=== PATIENT | male | born 1960 | race Caucasian/White ===

== ENCOUNTER 2016-03-25 17:36 | Emergency (ER) | payer BC ==
[2016-03-25 19:00] VITALS: BP 162/97
--- NOTE | 2016-03-25 19:12 | UC ---
Respiratory Complaint HPI - HPI Summary HPI Summary: The patient comes in today for: 1. Sinus pressure: Onset: 4 days ago. Palliative/Provocative: Sitting up helps with sleep. Mucinex has helped. Quality: Pressure Region: Frontal sinuses Severity: 4/10 Time: Constant. Associated symptoms: Sore throat: Present. Rhinitis: Cloudy, yellow. Cough: Present, and productive of yellow sputum Vomiting: None. Fevers: None. Shortness of breath: None. Chest pain: None. Wheezing: None. Upper tooth pain: None. * - History of Current Complaint Chief Complaint: UCGeneralIllness Stated Complaint: SORE THROAT, SINUSES Time Seen by Provider: 03/25/16 19:03 Hx Obtained From: Patient - Allergies/Home Medications Allergies/Adverse Reactions: Allergies Allergy/AdvReac Type Severity Reaction Status Date / Time No Known Allergies Allergy Verified 03/08/13 11:21 Home Medications: Home Medications Atorvastatin* [Lipitor 10 MG*] 10 mg PO 1700 03/25/16 [History Confirmed ] PMH/Surg Hx/FS Hx/Imm Hx Previously Healthy: No - Basal cell carcinoma. Endocrine History Of: Reports: Dyslipidemia Denies: Diabetes, Thyroid Disease, Hyperthyroidism, Hypothyroidism Cardiovascular History Of: Reports: Hypertension Denies: Cardiac Disorders, Pacemaker/ICD, Myocardial Infarction, Congestive Heart Failure, Atrial Fibrillation, Deep Vein Thrombosis, Bleeding Disorders Respiratory History Of: Denies: COPD, Asthma, Bronchitis, Pneumonia, Pulmonary Embolism GI/ History Of: Denies: Gastroesophageal Reflux, Ulcer, Gastrointestinal Bleed, Gall Bladder Disease, Kidney Stones, Diverticulitis, Renal Disease, Urosepsis Neurological History Of: Denies: TIA, CVA, Dementia, Seizures, Migraine Psychological History Of: Denies: Anxiety, Depression, Bipolar Disorder, Schizophrenia, Post Traumatic Stress Disorder Cancer History Of: Denies: Lung Cancer, Colorectal Cancer, Breast Cancer, Prostate Cancer, Cervical Cancer Other History Of: Negative For: HIV, Hepatitis B, Hepatitis C, Anticoagulant Therapy - Surgical History Surgical History: Yes Surgery Procedure, Year, and Place: left shoulder - Family History Known Family History: Negative: Cardiac Disease, Hypertension - Social History Occupation: Employed Full-time Alcohol Use: None Substance Use Type: None Smoking Status (MU): Never Smoked Tobacco Review of Systems Constitutional: Negative Skin: Negative Eyes: Negative ENT: Sore Throat, Nasal Discharge Respiratory: Negative Cardiovascular: Negative Gastrointestinal: Negative Genitourinary: Negative All Other Systems Reviewed And Are Negative: Yes Physical Exam Triage Information Reviewed: Yes Appearance: Well-Appearing, No Pain Distress, Well-Nourished Vital Signs: Initial Vital Signs Temp 98.2 F 03/25/16 18:52 Pulse 76 03/25/16 18:52 Resp 16 03/25/16 18:52 BP 162/97 03/25/16 18:52 Pulse Ox 98 03/25/16 18:52 Vital Signs Reviewed: Yes Eyes: Positive: Conjunctiva Clear. Negative: Discharge ENT: Positive: Hearing grossly normal, Other: - Frontal sinus pressure: present with palpation.. Negative: Pharyngeal erythema, Nasal congestion, Nasal drainage, TM bulging, TM dull, TM red, Tonsillar swelling, Tonsillar exudate Dental: Negative: Gross Decay/Caries @, Dental Fracture @ Neck: Positive: Supple, Nontender, No Lymphadenopathy. Negative: Nuchal Rigidity Respiratory: Positive: Chest non-tender, Lungs clear, No respiratory distress, No accessory muscle use. Negative: Accessory muscle use, Crackles, Wheezing Cardiovascular: Positive: RRR, No Murmur Abdomen Description: Positive: Nontender, No Organomegaly, Soft. Negative: Distended, Guarding, McBurney's Point Tenderness, Peritoneal Signs Musculoskeletal: Positive: Strength Intact, ROM Intact, No Edema Neurological: Positive: Alert, Muscle Tone Normal Psychological: Positive: Age Appropriate Behavior, Consolable Skin: Negative: rashes, breakdown UC Diagnostic Evaluation - Laboratory O2 Sat by Pulse Oximetry: 98 Respiratory Course/Dx - Differential Dx/Diagnosis Differential Diagnosis/HQI/PQRI: Asthma, Bronchitis, Laryngitis, Sinusitis Provider Diagnoses: Sinusitis. Bronchitis Discharge - Discharge Plan Condition: Stable Disposition: HOME Patient Education Materials: Sinusitis (ED), Acute Bronchitis (ED) Additional Instructions: Please see your primary care provider in about a week to see how well you are doing. If you get worse, please be seen sooner by your primary care provider or us. IF you don't have a primary care provider, please reference the list of local providers included with your discharge papers to get one.
== END 2016-03-25 19:33 | disposition home or self-care (01) ==
LOC: UCCORT 17:36
DX: J32.9 Chronic sinusitis, unspecified (principal); J40 Bronchitis, not specified as acute or chronic
CPT/HCPCS: 99212; G0463

== ENCOUNTER 2016-12-15 09:59 | Emergency (ER) | payer BC ==
[2016-12-15 11:14] VITALS: BP 137/86
--- NOTE | 2016-12-15 12:02 | UC ---
Throat Pain/Nasal Pritesh HPI - HPI Summary HPI Summary: 56 yo male with 2 week hx of wasxing and waning sinus pressure and pain occasional right otalgia no f/c no n/v mild sore throat nasal congestion and post nasal drip - History of Current Complaint Chief Complaint: UCRespiratory Stated Complaint: SINUS PRESSURE Time Seen by Provider: 12/15/16 11:46 Hx Obtained From: Patient Onset/Duration: Gradual Onset, Lasting Weeks Severity: Moderate Pain Intensity: 2 Pain Scale Used: 0-10 Numeric Cough: None Associated Signs & Symptoms: Positive: Sinus Discomfort, Nasal Discharge - Epiglottits Risk Factors Epiglottis Risk Factors: Negative - Allergies/Home Medications Allergies/Adverse Reactions: Allergies Allergy/AdvReac Type Severity Reaction Status Date / Time No Known Allergies Allergy Verified 03/08/13 11:21 Home Medications: Home Medications Acetaminophen TAB* [Tylenol TAB*] 650 mg PO Q4H PRN 12/15/16 [History Confirmed 12/15/16] Aspirin EC Low Dose* [Ecotrin EC Low Dose 81 MG*] 81 mg PO DAILY 12/15/16 [ History Confirmed 12/15/16] Multivitamins/Minerals TAB* [Thera M Plus TAB*] 1 tab PO DAILY 12/15/16 [ History Confirmed 12/15/16] PMH/Surg Hx/FS Hx/Imm Hx Previously Healthy: Yes Endocrine History: Dyslipidemia Cardiovascular History: Hypertension Other History Of: Negative For: HIV, Hepatitis B, Hepatitis C, Anticoagulant Therapy - Surgical History Surgical History: Yes Surgery Procedure, Year, and Place: Left Shoulder Labrum and Rotator Cuff, 2006 , [place] - Family History Known Family History: Positive: Other - mom CVA and colon CA Negative: Cardiac Disease, Hypertension - Social History Alcohol Use: Rare Substance Use Type: None Smoking Status (MU): Never Smoked Tobacco - Immunization History Most Recent Influenza Vaccination: Not the 2017/2017 Season Review of Systems Constitutional: Negative Skin: Negative Eyes: Negative ENT: Ear Ache, Nasal Discharge, Sinus Congestion, Sinus Pain/Tenderness Respiratory: Negative Cardiovascular: Negative Gastrointestinal: Negative Genitourinary: Negative Motor: Negative Neurovascular: Negative Musculoskeletal: Negative Neurological: Negative Psychological: Negative Is Patient Immunocompromised?: No All Other Systems Reviewed And Are Negative: Yes Physical Exam Triage Information Reviewed: Yes Appearance: Well-Appearing, No Pain Distress, Well-Nourished Vital Signs: Initial Vital Signs Temp 98.2 F 12/15/16 11:05 Pulse 68 12/15/16 11:05 Resp 16 12/15/16 11:05 BP 137/86 12/15/16 11:05 Pulse Ox 100 12/15/16 11:05 Eyes: Positive: Conjunctiva Clear ENT: Positive: Hearing grossly normal, Nasal congestion, Nasal drainage, TMs normal, Other: - R>L max sinus tenderness. Negative: Tonsillar exudate, Trismus , Muffled/hoarse voice Neck: Positive: Supple, Nontender Respiratory: Positive: Lungs clear, Normal breath sounds, No respiratory distress, No accessory muscle use Cardiovascular: Positive: RRR, No Murmur Musculoskeletal: Positive: ROM Intact, No Edema Neurological Exam: Normal Neurological: Positive: Alert Psychological Exam: Normal Skin Exam: Normal Throat Pain/Nasal Course/Dx - Differential Dx/Diagnosis Provider Diagnoses: acute sinusitis Discharge - Discharge Plan Condition: Stable Disposition: HOME Prescriptions: Amoxicillin PO (*) [Amoxicillin 875 MG (*)] 875 mg PO BID #20 tab Patient Education Materials: Sinusitis (ED), Warm Compress or Soak (ED) Referrals: Balwinder VALDEZ,Navneet Miller [Primary Care Provider] - 5 Days (if not better) Additional Instructions: saline nasal spray twice daily
== END 2016-12-15 12:10 | disposition home or self-care (01) ==
LOC: UCCORT 09:59
DX: J01.90 Acute sinusitis, unspecified (principal); E78.5 Hyperlipidemia, unspecified; I10 Essential (primary) hypertension
CPT/HCPCS: 99212; G0463

== ENCOUNTER 2018-09-14 21:29 | Emergency (ER) | payer BC ==
[2018-09-14 23:02] VITALS: BP 139/87
--- NOTE | 2018-09-14 23:11 | UC ---
General HPI - HPI Summary HPI Summary: on 09/09, pt was holding a football shield when he fell back landing on his L elbow and tore his tricep muscle. the area bruised and swelled but was improving. today, he was lifting and pushing overhead and got sudden sever pain over his lower L tricep with more swelling. the swelling goes into his lower arm as well. he notes some of the bruising in his arm is turning yellow. - History of Current Complaint Chief Complaint: UCUpperExtremity Stated Complaint: PAIN/SWELING LEFT TRICEP Time Seen by Provider: 09/14/18 23:04 Hx Obtained From: Patient Pain Intensity: 7 Associated Signs & Symptoms: Positive: Edema - Allergy/Home Medications Allergies/Adverse Reactions: Allergies Allergy/AdvReac Type Severity Reaction Status Date / Time No Known Allergies Allergy Verified 09/14/18 22:53 Home Medications: Home Medications Ibuprofen TAB* [Advil TAB*] 600 mg PO Q6H PRN 09/14/18 [History Confirmed ] Ramipril CAP* [Altace CAP*] 10 mg PO DAILY 09/14/18 [History Confirmed 09/14/18] PMH/Surg Hx/FS Hx/Imm Hx Endocrine History: Dyslipidemia Cardiovascular History: Hypertension Other History Of: Negative For: HIV, Hepatitis B, Hepatitis C, Anticoagulant Therapy - Surgical History Surgical History: Yes Surgery Procedure, Year, and Place: Left Shoulder Labrum and Rotator Cuff, 2006 , [place] - Family History Known Family History: Positive: Other - mom CVA and colon CA Negative: Cardiac Disease, Hypertension - Social History Alcohol Use: Occasionally Substance Use Type: None Smoking Status (MU): Never Smoked Tobacco - Immunization History Most Recent Influenza Vaccination: Not the Season Review of Systems All Other Systems Reviewed And Are Negative: No Constitutional: Negative: Fever Musculoskeletal: Positive: Edema - L ARM. Negative: Decreased ROM Neurological: Negative: Paresthesia, Numbness Physical Exam Triage Information Reviewed: Yes Appearance: Well-Appearing Vital Signs: Initial Vital Signs Temp 99 F 09/14/18 22:55 Pulse 72 09/14/18 22:55 Resp 20 09/14/18 22:55 BP 139/87 09/14/18 22:55 Pulse Ox 99 09/14/18 22:55 Vital Signs Reviewed: Yes Neck: Positive: Supple Respiratory: Positive: No respiratory distress Cardiovascular: Positive: RRR Musculoskeletal: Positive: Other: - LUE: moderate swelling from the lower 2/3 of humerus into the forearm and hand with yellowing ecchymosis. The lower half of that tricep is indurated and tender. The arm has full rom but extension at the elbow causes tricep mm pain. The hand has full s/v/m function. Neurological: Positive: Alert Psychological: Positive: Age Appropriate Behavior Skin Exam: Normal Course/Dx - Differential Dx - Multi-Symptom Differential Diagnoses: Other - exam c/w tricep mm injury. i think the swelling is injury related and not from a dvt. i will sling to limit tricep mm use and refer orhto for f/u tomorrow. - Diagnoses Provider Diagnosis: Strain of triceps muscle Discharge - Sign-Out/Discharge Documenting (check all that apply): Patient Departure All imaging exams completed and their final reports reviewed: No Studies - Discharge Plan Condition: Stable Disposition: HOME Patient Education Materials: Ice Pack Application (ED), Tendon Rupture (ED) Referrals: Gil Rodriguez MD [Medical Doctor] - 1 Day Additional Instructions: SLING DURING DAY AND REMOVE FOR BEDTIME. - Billing Disposition and Condition Condition: STABLE Disposition: Home - Attestation Statements Provider Attestation: Per institutional requirements, I have reviewed the chart.
== END 2018-09-14 23:33 | disposition home or self-care (01) ==
LOC: UCCORT 21:29
DX: S46.312A Strain of muscle, fascia and tendon of triceps, left arm, initial encounter (principal); X50.0XXA Overexertion from strenuous movement or load, initial encounter; Y93.89 Activity, other specified; Y92.9 Unspecified place or not applicable
CPT/HCPCS: 99212; G0463

== ENCOUNTER → 2018-10-14 05:34 | Day surgery (SDC) | payer BC ==
[~2018-10-14 05:34] MED LIST: Acetaminophen TAB* 325 MG PO PRN; Buffered Lidocaine 1% SYRIN* 1 ML/SYRINGE INTRADERM ONE; Bupivacaine 0.5%* 50 ML MDV VIAL ONE; Dexamethasone IV* 4 MG/ML 1 ML (4 MG) IV SLOW PU ONE; Dexamethasone IV* 4 MG/ML 1 ML (4 MG) ONE; DiMENhydriNATE IV* 50 MG/ML VIAL IV PUSH PRN; DiMENhydriNATE IV* 50 MG/ML VIAL ONE; Famotidine TAB* 20 MG ONE; Famotidine TAB* 20 MG PO ONE; Glycopyrrolate IV* 0.2 MG/ML 1 ML VIAL ONE; HYDROmorphone INJ1* 1 MG/ML SYRINGE ONE; Ketorolac INJ* 30 MG/ML 1 ML VIAL IV PRN; Ketorolac INJ* 30 MG/ML 1 ML VIAL ONE; Lactated Ringers 1000 ML Bag* 1,000 ML IV SCH; Lidocaine 2% PF * 5 ML VIAL ONE; Midazolam* 1 MG/ML 2 ML VIAL (2 MG) ONE; Naloxone* 0.4 MG/ML 1 ML VIAL IV PRN; Neostigmine Methylsulfate* 3 MG/3 ML SYRINGE ONE; Ondansetron INJ* 2 MG/ML VIAL ONE; Propofol* 10 MG/ML 20 ML BTL ONE; Rocuronium* 10 MG/ML VIAL ONE; ceFAZolin 2 GM in NS PREMIX(*) 2 GM/100 ML BAG IVPB ONE; fentaNYL* 50 MCG/ML 2 ML VIAL (100 MCG VIAL) IV PRN; fentaNYL* 50 MCG/ML 2 ML VIAL (100 MCG VIAL) ONE; oxyCODONE/Acetamin 5/325 MG* TAB ONE; oxyCODONE/Acetamin 5/325 MG* TAB PO PRN
[2018-10-14] MEDS: HYDROmorphone INJ1* 1 MG/ML SYRINGE IV PRN ×2 (10:13→10:33)
[2018-10-14 12:50] VITALS: BP 109/72
--- NOTE | 2018-10-14 22:35 | OP ---
DATE OF OPERATION: 10/14/18 - [facility] DATE OF : 62 SURGEON: Abraham Chinchilla MD. TRACTOR TRAILER OPERATOR: LEAH Butler. A physician funeral home assistant was required for the length of the procedure for assistance with patient positioning, retraction, and closure. ANESTHESIOLOGIST: Dr. Yovany Cheng. ANESTHESIA: General anesthesia, local anesthesia with 10 cc of 0.5% Marcaine with epinephrine. PRE-OP DIAGNOSIS: Left triceps tendon tear, distal. POST-OP DIAGNOSIS: Left triceps tendon tear, distal. OPERATIVE PROCEDURE: Open left distal triceps tendon repair. ANTIBIOTICS: 2 g Ancef IV. IV FLUIDS: 1300 cc crystalloid. TOURNIQUET TIME: 75 minutes, left upper arm tourniquet, 250 mmHg. MFEL-PL-LFTO TIME: 71 minutes. SPECIMEN: None. IMPLANTS: FiberWire #2 suture, x2. Mitek Gryphon anchor, double loaded, x1. COMPLICATIONS: None. ESTIMATED BLOOD LOSS: Minimal. 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 His MRI had been performed and I have reviewed it. We discussed the pros and cons of nonoperative and operative management and the patient opted for surgery. His tear by MRI appeared to be a partial tear but involved most, if not all, of the central tendon of the triceps. The patient and I discussed about the operative technique and postoperative rehabilitation time. We discussed risks and potential complications. DESCRIPTION OF PROCEDURE: In preoperative holding, the patient signed a written consent. Operative extremity was marked in preoperative holding. The patient was taken back to the operating room and placed supine on the operating room table. Sedated and intubated. The patient was turned into the lateral decubitus position with the left side up. Beanbag was hardened. Axillary role was placed. All bony prominences were padded. A Víctor arm positioner was applied to the table and the upper arm rested on it, left. The left upper extremity was prepped and draped. Tourniquet was applied prior to the prep and drape. Surgical time-out was performed. Esmarch was applied and the tourniquet was elevated to 250 mmHg. I noted evaluating the elbow that there was some fluid in the olecranon bursa. This was a mild amount of fluid. However, I wanted to avoid placing a skin incision directly through that bursa to minimize the risk of future wound problems. I made a skin incision about the posterior aspect of the upper extremity centered just proximal to the olecranon tip. My incision was midline with the exception of curve laterally around the olecranon bursa. I changed knives and dissected down to the paratenon of the triceps proximally and to the proximal ulnar and fascial layer distal. I incised the paratenon longitudinally. This was quite thickened likely from the presence of a hematoma for a month now. With the fascia overlying the proximal ulna, I dissected down on bone in preparation for my bone tunnels. There was some fluid which was removed. Some irrigation used. I encountered the footprint of the triceps. Surprisingly, much of the footprint still had tendon on it. However, the distal part of the footprint was bare. I debrided the bone with rongeur and curette. I probed around for the torn tendon edge. The torn tendon edge had retracted significantly. It was noted that this was easily at least 10 cm proximal to its insertion site, significantly higher than it had been seen on MRI when it was only perhaps 4 to 5 cm retracted. The tendon was in good shape. Using my hands and blunt dissection, I was able to free that tendon up such that it could be pulled distally with an Allis grasper and then with a traction stitch, to be able to be brought to bone without significant tension. Next, satisfied that I could perform a good repair despite 5 weeks having transpired from the injury, I went about prepping the olecranon. I made two crossing bone tunnels with a 2-mm drill bit. I placed passing Prolene suture through these drilled tunnels. I next more proximally in the footprint placed a Mitek Gryphon suture anchor double- loaded. I next placed whip stitches, Elyse, 2 of them in the tendon. I did this using FiberWire #2 suture. I next used the free needle and placed my sutures from the Mitek Gryphon anchor, horizontal mattress stitches in the tendon but I did not tie these yet. I brought my Krackow sutures through the bone tunnels. I tied these distally with the elbow in 30 degrees of flexion. I moved the knot lateral deep to fascia. I next tied my horizontal mattress stitches from the Mitek Gryphon anchor. I cut suture ends. I was able to flex the elbow to perhaps 60 degrees of flexion without gapping at that repair site. Irrigation. I repaired some of the central tendon to medial and lateral tendon and muscle of the triceps using multiple [id number] stitches using Vicryl 0 suture. I next repaired the paratenon with [id number]-[id number]-eyscr stitch and then running stitch using Vicryl 0 suture. I repaired the fascia overlying the proximal ulna with [id number]-[id number] stitches using Vicryl 0 suture. There was only a small amount of bone exposed just deep to the olecranon bursa which I kept intact. I next closed the subcutaneous tissue layer with buried simple stitches using Vicryl 2-0 suture. I closed skin with a running stitch using nylon 3-0 suture. Xeroform, 4x4s, ABD, sterile Webril. Dropped tourniquet. Placed a posterior splint with plaster followed by sugar-tong splint and overwrapped with an Moises bandage. This was applied with the elbow in 30 degrees of flexion. Sling was applied. The patient was awakened, extubated, and transferred to the PACU. The patient was discharged when medically stable. Percocet as needed for pain control. A short course of antibiotics to prevent infection. Instructions for the patient to remain in that splint at all times. The patient will follow up with me in 10 to 14 days postoperatively. I gave the patient and his the option of presenting to clinic within the first week postoperative, at which point we could convert him to an elbow brace that the patient will likely find much more comfortable than the elbow splint. I typically offer this to all of my distal biceps and triceps repair patients. The sling use is optional. In the PACU, I did a brief neurovascular exam and confirmed intact motor and sensory function of the ulnar nerve which I did not visualize during the case. [id number]/CPS #: [id number] MTDD
== END | disposition home or self-care (01) ==
LOC: OR 05:34
PROVIDERS: ATTEND Orthopaedic Surgery
DX: S46.312A Strain of muscle, fascia and tendon of triceps, left arm, initial encounter (principal); M70.22 Olecranon bursitis, left elbow; X50.0XXA Overexertion from strenuous movement or load, initial encounter; Y93.61 Activity, american tackle football; Y92.321 Football field as the place of occurrence of the external cause; Y99.0 Civilian activity done for income or pay; I10 Essential (primary) hypertension; E78.5 Hyperlipidemia, unspecified; M19.90 Unspecified osteoarthritis, unspecified site; Z85.828 Personal history of other malignant neoplasm of skin
CPT/HCPCS: A9270-GY; J0690; J1100; J1170; J1240; J1885; J2250; J2405; J2704; J2710; J3010; J3490

== ENCOUNTER 2019-01-17 09:42 | Emergency (ER) | payer BC ==
--- OUTSIDE RECORDS SUMMARY | 2019-01-17 10:39 | XMS REPORT | Continuity of Care Document ---
:1960 External Reference #:[id number] Author Name Abraham Chinchilla MD (transmitted by agent of provider Anne Cartwright) Address [address] [place] [id number] Care Team Providers Name Role Phone Navneet Britt M.D. 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 Medicine Problems Description No Information Available Social History Type Date Description Comments Sex Unknown ETOH Use Occasionally consumes alcohol Tobacco Use Start: Unknown Patient has never smoked Smoking Status Reviewed: 01/07/19 Patient has never smoked Exercise Type/Frequency Exercises regularly Exercise Type/Frequency Exercises regularly Allergies, Adverse Reactions, Alerts Description No Known Drug Allergies Medications Active Medications SIG Qnty Indications Ordering Date Provider Left Hinged Elbow Start it locked 1units S46.302D Abraham Garces 10/29/2018 Brace for allowable 0-60 MD Amor degrees range of motion. Left Elbow Hinged Left elbow hinged 1units S46.302A Abraham Garces 10/12/2018 Brace brace. Ht: 66" MD Amor Wt:180 Ramipril TK 1 C PO qd Unknown 10mg Capsules Atorvastatin Calcium TK 1 T PO QHS Unknown 10mg Tablets History Medications Oxycodone-Acetaminophen 1 tab by 20tabs Abraham Garces 10/14/2018 - 5-325mg Tablets mouth every 6 MD Amor 11/24/2018 hours as needed for pain Cephalexin take 1 tablet 15tabs Abraham Garces 10/14/2018 - 500mg Tablets by mouth MD Amor 11/24/2018 every 8 hours for 5 days Immunizations Description No Information Available Vital Signs Date Vital Result Comment 01/07/2019 1:01pm Height 66 inches 5'6" Weight 176.00 lb Heart Rate 66 /min BP Systolic 128 mmHg BP Diastolic 86 mmHg Pain Level 0 BMI (Body Mass Index) 28.4 kg/m2 11/25/2018 1:26pm Height 66 inches 5'6" Weight 176.00 lb stated Heart Rate 76 /min BP Systolic 140 mmHg BP Diastolic 78 mmHg Respiratory Rate 12 /min Pain Level 0 BMI (Body Mass Index) 28.4 kg/m2 Results Description No Information Available Procedures Date Code Description Status 10/14/2018 18871 reinsertion ruptured biceps or triceps tendon,distal with Completed or w/o 10/14/2018 95896 reinsertion ruptured biceps or triceps tendon,distal with Completed or w/o Medical Devices Description No Information Available Encounters Type Date Location Provider Dx Diagnosis Office Visit 10/12/2018 [facility] Abraham Garces S46.312A Strain of 1:00p at [facility] Chinchilla MD musc/fasc/tend triceps, left arm, init M70.22 Olecranon bursitis, left elbow Assessments Date Code Description Provider 01/07/2019 S46.312D Strain of muscle, fascia and tendon of Abraham Chinchilla MD triceps, left arm, subsequent encounter 11/25/2018 S46.312D Strain of muscle, fascia and tendon of Abraham Chinchilla MD triceps, left arm, subsequent encounter 10/29/2018 S46.312D Strain of muscle, fascia and tendon of Abraham Chinchilla MD triceps, left arm, subsequent encounter 10/14/2018 S46.312A Strain of muscle, fascia and tendon of Abraham Chinchilla MD triceps, left arm, initial encounter 10/14/2018 S46.312A Strain of muscle, fascia and tendon of LEAH Butler triceps, left arm, initial encounter 10/12/2018 S46.312A Strain of muscle, fascia and tendon of Abraham Chinchilla MD triceps, left arm, initial encounter 10/12/2018 M70.22 Olecranon bursitis, left elbow Abraham Chinchilla MD 09/28/2018 S46.302A Unspecified injury of muscle, fascia and Abraham Chinchilla MD tendon of triceps, left arm, initial encounter Plan of Treatment 01/07/2019 - DANTE Bettencourt46.312D Strain of muscle, fascia and tendon of triceps, left arm, subsequent encounterFollow up:Follow up: As needed Functional Status Description No Information Available Mental Status Description No Information Available Referrals Description No Information Available
--- OUTSIDE RECORDS SUMMARY | 2019-01-17 10:39 | XMS REPORT | Continuity of Care Document ---
:1960 External Reference #:[id number] Author Name Abraham Chinchilla MD (transmitted by agent of provider Anne Lindsay ) Address [address] [place] [id number] Care Team Providers Name Role Phone Navneet Britt M.D. - Family Care Team Information Director Social Medicine Problems Description No Information Available Social History Type Date Description Comments Sex Unknown ETOH Use Occasionally consumes alcohol Tobacco Use Start: Unknown Patient has never smoked Smoking Status Reviewed: 11/25/18 Patient has never smoked Exercise Type/Frequency Exercises [...] Available Vital Signs Date Vital Result Comment 11/25/2018 1:26pm Height 66 inches 5'6" Weight 176.00 lb stated Heart Rate 76 /min BP Systolic 140 mmHg BP Diastolic 78 mmHg Respiratory Rate 12 /min Pain Level 0 BMI (Body Mass Index) 28.4 kg/m2 10/29/2018 8:51am Height 66 inches 5'6" Weight 175.00 lb Heart Rate 68 /min BP Systolic 128 mmHg BP Diastolic 78 mmHg Respiratory Rate 12 /min Pain Level 1 BMI (Body Mass Index) 28.2 kg/m2 Results Description No Information Available Procedures Date Code Description Status 10/14/2018 59838 reinsertion ruptured biceps or triceps tendon,distal with Completed or w/o 10/14/2018 17899 reinsertion ruptured biceps or triceps tendon,distal with Completed or w/o Medical Devices Description No Information Available Encounters Type Date Location Provider Dx Diagnosis Office Visit 10/12/2018 [facility] Garces S46.312A Strain of 1:[facility] Ch[facility] MD musc/fasc/tend triceps, left arm, init M70.22 Olecranon bursitis, left elbow Assessments Date Code Description Provider 11/25/2018 S46.312D Strain of muscle, fascia and [...] left arm, initial encounter Plan of Treatment Future Appointment(s):01/07/2019 1:00 pm - [facility] - Abraham Chinchilla, MDS46.312D Strain of muscle, fascia and tendon of triceps, left arm, subsequent encounterFollow up :Follow up: 6 weeks Functional Status Description No Information Available Mental Status Description No Information Available Referrals Description No Information Available
[2019-01-17] MEDS ORDERED: Ondansetron ODT TAB* 4 MG PO ONE (11:08)
--- NOTE | 2019-01-17 11:11 | UC ---
Throat Pain/Nasal Pritesh HPI - HPI Summary HPI Summary: 58-year-old male comes in with a chief complaint of sore throats headache and nausea. Patient's had strep throat the past and is wondering if that strep throat. Symptoms started 2 days ago was a lot worse this morning. Did take some DayQuil which he feels did help some with the symptoms. Swallowing makes the pain worse. - History of Current Complaint Chief Complaint: UCGeneralIllness Stated Complaint: HEADACHE, NAUSEA, SINUS PRESSURE Time Seen by Provider: 01/17/19 10:56 Pain Intensity: 7 - Allergies/Home Medications Allergies/Adverse Reactions: Allergies Allergy/AdvReac Type Severity Reaction Status Date / Time No Known Allergies Allergy Verified 10/14/18 06:16 PMH/Surg Hx/FS Hx/Imm Hx Previously Healthy: Yes Endocrine History: Dyslipidemia Cardiovascular History: Hypertension Other History Of: Negative For: HIV, Hepatitis B, Hepatitis C, Anticoagulant Therapy - Surgical History Surgical History: Yes Surgery Procedure, Year, and Place: Left Shoulder Labrum and Rotator Cuff, 2006 , [place];. VASECTOMY;. DENTAL/ORAL SURGERIES; - Family History Known Family History: Positive: Other - mom CVA and colon CA Negative: Cardiac Disease, Hypertension - Social History Alcohol Use: Rare Substance Use Type: None Smoking Status (MU): Never Smoked Tobacco Have You Smoked in the Last Year: No - Immunization History Most Recent Influenza Vaccination: Not the 2016/2017 Season Review of Systems All Other Systems Reviewed And Are Negative: Yes Constitutional: Positive: Negative Skin: Positive: Negative Eyes: Positive: Negative ENT: Positive: Sore Throat, Nasal Discharge Respiratory: Positive: Negative Cardiovascular: Positive: Negative Gastrointestinal: Positive: Nausea Motor: Positive: Negative Neurovascular: Positive: Negative Musculoskeletal: Positive: Negative Neurological: Positive: Headache Psychological: Positive: Negative Is Patient Immunocompromised?: No Physical Exam Triage Information Reviewed: Yes Appearance: Well-Appearing, No Pain Distress, Well-Nourished Vital Signs: Initial Vital Signs Temp 98.0 F 01/17/19 10:41 Pulse 62 01/17/19 10:41 Resp 18 01/17/19 10:41 BP 181/98 01/17/19 10:41 Pulse Ox 99 01/17/19 10:41 Vital Signs Reviewed: Yes Eye Exam: Normal Eyes: Positive: Conjunctiva Clear ENT: Positive: Pharyngeal erythema, TMs normal Neck: Positive: Supple Respiratory: Positive: Lungs clear, Normal breath sounds, No respiratory distress Cardiovascular: Positive: RRR Musculoskeletal: Positive: Strength Intact, ROM Intact Neurological: Positive: Alert, Muscle Tone Normal Psychological: Positive: Age Appropriate Behavior Skin Exam: Normal Throat Pain/Nasal Course/Dx - Course Course Of Treatment: DISCUSSED VIRAL VERSES BACTERIAL INFECTIONS AND THE ROLE OF ANTIBIOTICS. THE PATIENT PREFERS TO BE ON ANTIBIOTICS AT THIS TIME. Nausea is decreased in clinic with Zofran. Patient is on ramipril 10 mg daily. Reports his normal blood pressure is around 120/80 when it's been checked. He did take [id number] cough medicine today. I recommended him not taking that same cough medicine and also rechecking his blood pressure at home and follow-up his primary care doctor for the hypertension. - Differential Dx/Diagnosis Provider Diagnosis: Upper respiratory infection, Hypertension Discharge ED - Sign-Out/Discharge Documenting (check all that apply): Patient Departure All imaging exams completed and their final reports reviewed: No Studies - Discharge Plan Condition: Stable Disposition: HOME Prescriptions: Amoxicillin PO (*) [Amoxicillin 875 MG (*)] 875 mg PO BID #20 tab Ondansetron ODT TAB* [Zofran 4 MG Odt TAB*] 4 mg PO Q6H PRN #10 tab.odt PRN Reason: Nausea Patient Education Materials: Upper Respiratory Infection (ED), Hypertension (ED ) Referrals: Balwinder VALDEZ,Navneet Miller [Primary Care Provider] - Additional Instructions: FOLLOW UP WITH YOUR DOCTOR FOR YOUR HYPERTENSION AND YOUR UPPER RESPIRATORY TRACT INFECTION SYMPTOMS IF NOT IMPROVING. GET REEVALUATED SOONER IF NOT IMPROVING OR YOUR CONDITION WORSENS OR ANY QUESTIONS OR CONCERNS. - Billing Disposition and Condition Condition: STABLE Disposition: Home
[2019-01-17] MEDS ORDERED: Ibuprofen TAB* 600 MG PO ONE (11:50)
[2019-01-17 11:51] VITALS: BP 172/101
== END 2019-01-17 12:19 | disposition home or self-care (01) ==
LOC: UCCORT 09:42
DX: J06.9 Acute upper respiratory infection, unspecified (principal); I10 Essential (primary) hypertension; R51 Headache; R11.0 Nausea
CPT/HCPCS: 87651; 99212; A9270-GY; G0463